=== PATIENT | female | born 1960 | race Caucasian/White ===

== ENCOUNTER 2020-02-08 08:44 | Outpatient (CLI) | payer BC, SELFPAY ==
--- NOTE | 2020-02-08 08:53 | USCV_ITS ---
Keira Infante Age: 59 Gender: F : 1960 Exam Date: 02/08/2020 09:23 Ordering Phys: Angel Mark MD ([email or web address]) Technologist: Harmony Pacheco Exam Location: [facility] Indication: AORTIC STENOSIS BP: / HR: 55 Rhythm: Sinus Technical Quality: MEASUREMENTS (Male / Female) Normal Values 2D ECHO LV Diastolic Diameter PLAX 4.1 cm 4.2 - 5.9 / 3.9 - 5.3 cm LV Systolic Diameter PLAX 2.3 cm LV Chamber Size 3.4 cm IVS Diastolic Thickness 1.4 cm 0.6 - 1.0 / 0.6 - 0.9 cm IVS Systolic Thickness 2.2 cm LVPW Diastolic Thickness 2.1 cm 0.6 - 1.0 / 0.6 - 0.9 cm LVPW Systolic Thickness 2.0 cm RV Chamber Size 2.6 cm LVOT Diameter 2.0 cm LV Ejection Fraction 2D Teich 76.0 % LV Ejection Fraction MOD 2C 36.3 % LV Ejection Fraction 2C AL 37.7 % LA Diameter 4.3 cm LA Width 3.2 cm LA Height 5.4 cm RA Width 2.6 cm RA Height 4.8 cm Aorta at Sinotubular Diameter 2.4 cm M-MODE LV Diastolic Diameter MM 4.8 cm 4.2 - 5.9 / 3.9 - 5.3 cm LV Systolic Diameter MM 2.2 cm LV Ejection Fraction MM Teich 85.7 % IVS Diastolic Thickness MM 0.8 cm 0.6 - 1.0 / 0.6 - 0.9 cm IVS Systolic Thickness MM 1.4 cm LVPW Diastolic Thickness MM 1.6 cm 0.6 - 1.0 / 0.6 - 0.9 cm LVPW Systolic Thickness MM 2.2 cm Aortic Annulus Diameter 2.9 cm LA Ao Ratio MM 1.5 MV E Point Septal Separation 0.4 cm DOPPLER AV Peak Velocity 283.0 cm/s LVOT Peak Velocity 126.0 cm/s AV Area Cont Eq vti 1.6 cm squared AV Area Cont Eq pk 1.4 cm squared MV Area PHT 3.6 cm squared Mitral E to A Ratio 1.1 MV E' Velocity 9.0 cm/s Mitral E to MV E' Ratio 15.0 Mitral E to LV E' Lateral Ratio 14.4 Mitral E to LV E' Septal Ratio 16.0 TR Peak Velocity 196.0 cm/s TR Peak Gradient 15.3 mmHg TV Peak E Velocity 59.0 cm/s Right Atrial Pressure 3.0 mmHg Pulmonary Artery Systolic Pressu 18.4 mmHg PV Peak Velocity 103.0 cm/s RV Acceleration Time 0.1 s RV Ejection Time 0.4 s RV AcT/ET 0.4 FINDINGS Left Ventricle Normal left ventricular cavity size. Normal left ventricular systolic function. No regional wall motion abnormalities. Left ventricular ejection fraction is estimated at 55 %. Grade II/IV diastolic dysfunction, moderately elevated filling pressures. Right Ventricle The right ventricle is normal in size and function. Right Atrium The right atrium is normal in size. Left Atrium The left atrium is normal in size. Mitral Valve Moderately thickened mitral valve. No mitral valve stenosis. Trace mitral valve regurgitation. Aortic Valve Moderate aortic valve calcification. Moderate aortic valve stenosis, mean gradient 12.5 mmHg, GIN 1.6 cm squared. Mild aortic valve regurgitation. Tricuspid Valve Mild tricuspid valve regurgitation. Pulmonic Valve Structurally normal pulmonic valve without significant stenosis. There is no pulmonic regurgitation. Pericardium Normal pericardium without effusion. Aorta Normal ascending aorta dimension. CONCLUSIONS 1-Normal left ventricular cavity size. Normal left ventricular systolic function. No regional wall motion abnormalities. Left ventricular ejection fraction is estimated at 55 %. Grade II/IV diastolic dysfunction, moderately elevated filling pressures. 2-Moderate aortic valve calcification. Moderate aortic valve stenosis, mean gradient 12.5 mmHg, GIN 1.6 cm squared. Mild aortic valve regurgitation. 3-Moderately thickened mitral valve. No mitral valve stenosis. Trace mitral valve regurgitation. 4-Mild tricuspid valve regurgitation. 5-There is no pericardial effusion. Pulmonary artery systolic pressure is within normal limits. 6-No significant change since the prior echocardiogram study of 05/21/2019 . Angel Mark MD (Electronically Signed) Final Date: 08 February 2020 12:11 S
== END 2020-02-08 08:45 | disposition home or self-care (01) ==
LOC: US 08:45
PROVIDERS: PCP Electrodiagnostic Medicine; Visit Provider Internal Medicine Cardiovascular Disease
DX: I35.0 Nonrheumatic aortic (valve) stenosis (principal)
CPT/HCPCS: 93306

== ENCOUNTER → 2020-02-18 10:44 | Outpatient (BNVA) | payer BC, SELFPAY | PROVIDERS: PCP Electrodiagnostic Medicine; Visit Provider Internal Medicine Cardiovascular Disease | DX: E78.5 Hyperlipidemia, unspecified (principal); I10 Essential (primary) hypertension; E78.1 Pure hyperglyceridemia; I35.0 Nonrheumatic aortic (valve) stenosis | CPT/HCPCS: 80048; 80061 ==

== ENCOUNTER 2020-06-19 15:11 | Outpatient (CLI) | payer BC, SELFPAY ==
--- NOTE | 2020-06-19 | XRR_ITS ---
PROCEDURE INFORMATION: Exam: XR Cervical Spine, 2 or 3 Views Exam date and time: 06/19/2020 3:23 PM Age: 59 years old Clinical indication: Radicular pain (radiculopathy); Cervical region; Additional info: Cervical radiculopathy lt shoulder/arm pain/numbness x 1 year TECHNIQUE: Imaging protocol: XR of the cervical spine, 2 or 3 views. COMPARISON: No relevant prior studies available. FINDINGS: Bones/joints: Normal. No acute fracture. There is reversal of cervical lordosis suggesting muscle spasm. No acute fracture or subluxation is seen. There is mild osteoarthritis seen with narrowing of the intervertebral disc space and bone spurs at multiple levels. Soft tissues: Unremarkable. XR/XR cervical spine 3V* [id number] IMPRESSION: 1. Reversal of cervical lordosis possible muscle spasm. 2. Mild osteoarthritis 3. Otherwise No acute findings.
== END 2020-06-19 15:12 | disposition home or self-care (01) ==
LOC: RAD 15:15
PROVIDERS: PCP Electrodiagnostic Medicine; Visit Provider Electrodiagnostic Medicine
DX: M54.12 Radiculopathy, cervical region (principal); M47.812 Spondylosis without myelopathy or radiculopathy, cervical region
CPT/HCPCS: 72040

== ENCOUNTER 2020-06-29 15:00 | Outpatient (CLI) | payer BC, SELFPAY ==
--- NOTE | 2020-06-29 15:19 | MR_ITS ---
WS: [id number] MRI CERVICAL SPINE NONCONTRAST TECHNIQUE: Sagittal T1, T2 and STIR imaging. Axial T2, gradient, and fiesta imaging. CLINICAL INFORMATION: CERVICAL RADICULOPATHY COMPARISON: None. FINDINGS: Straightening of the normal cervical lordosis. Mild disc bulging mid cervical spine. Cord signal is n ormal. No high-grade central canal stenosis. C2-C3: Mild left and no significant right bony foraminal narrowing. Mild facet arthropathy. Spinal ca nal is patent. C3-C4: Mild disc osteophytic ridging. Mild left greater than right foraminal narrowing. Mild to moder ate left facet arthropathy. C4-C5: Disc osteophyte complex with endplate ridging. Mild central canal stenosis with slight contact of the cervical cord. Mild to moderate bilateral bony foraminal narrowing. Mild facet arthropathy. C5-C6: Disc osteophyte complex with endplate ridging. Mild central canal stenosis and slight contact of the cervical cord. Moderate to severe right and moderate left bony foraminal narrowing. Mild facet arthropathy. C6-C7: Disc osteophyte complex with endplate ridging. Slight indentation cervical cord with mild to m oderate central canal stenosis. Moderate to severe left and moderate right bony foraminal narrowing. Mild facet arthropathy. C7-T1: Normal. Visualized brain stem structures: Normal. Prevertebral soft tissues: Normal. MR/MR cervical spin wo con* [id number] IMPRESSION: 1. Straightening of the normal cervical lordosis with mild spondylitic changes . Cord signal is normal. 2. Mild to moderate central canal stenosis C4-C5 C5-C6 and C6-C7 with disc ost eophyte complexes, more prominent at C6-7. 3. Moderate to severe multilevel bony foraminal narrowing worse at bilateral C 5-C6 worse on the right, and bilateral C6-7 worse on the left.
== END 2020-06-29 15:01 | disposition home or self-care (01) ==
LOC: RADSHAW 15:05
PROVIDERS: PCP Electrodiagnostic Medicine; Visit Provider Electrodiagnostic Medicine
DX: M54.12 Radiculopathy, cervical region (principal); M48.02 Spinal stenosis, cervical region
CPT/HCPCS: 72141

== ENCOUNTER 2020-07-16 10:48 | Emergency (ER) | payer BC, SELFPAY ==
[2020-07-16] VITALS (7 sets, daily range): BP systolic 80–125; BP diastolic 40–71; PULSE 65–96; RESP 16–19; TEMP 37.1; O2SAT 91–94; BMI 34.4
[2020-07-16] MEDS: sodium chloride 0.9% 1,000 ML 999 ML IV (11:00)
--- NOTE | 2020-07-16 11:17 | XRR_ITS ---
PROCEDURE INFORMATION: Exam: XR Chest, 1 View Exam date and time: 07/16/2020 11:21 AM Age: 59 years old Clinical indication: Shortness of breath; Additional info: SOB TECHNIQUE: Imaging protocol: XR of the chest Views: 1 view. COMPARISON: CR Chest 2 views* [id number] 07/05/2019 11:37 AM FINDINGS: Lungs: Bibasilar hazy interstitial pulmonary infiltrates are present. This could represent an interstitial pneumonia possibly viral in nature. Pleural space: Unremarkable. No pleural effusion. No pneumothorax. Heart/Mediastinum: Unremarkable. No cardiomegaly. Bones/joints: Unremarkable. XR/XR chest 1V portable [id number] IMPRESSION: There are bibasilar hazy interstitial pulmonary infiltrates which may be due to a viral pneumonia.
--- NOTE | 2020-07-16 11:20 | ECG_ITS ---
[facility] Test Date: 2020-07-16 Pat Name: Keira Infante Department: Room: Gender: Female Devops Developer: : 1960 Requested By: Donnie Ellison I Order Number: [id number] Reading MD: LUIS M VASQUES Measurements Intervals [place] Rate: 67 P: 23 [place]: 195 QRS: 49 QRSD: 106 T: 83 QT: 394 QTc: 418 Interpretive Statements SINUS RHYTHM WITH MARKED SINUS ARRHYTHMIA LOW QRS VOLTAGE IN PRECORDIAL LEADS [QRS DEFLECTION < 1.0 mV IN CHEST LEADS] No previous ECG available for comparison Electronically Signed On 07-16-2020 15:47:17 [employer] ELECTRICAL ENGINEER by LUIS M VASQUES [id number]
--- NOTE | 2020-07-16 11:29 | ED_ITS ---
HPI - SOB/Dyspnea General: Chief Complaint: Upper Respiratory Infection Stated Complaint: SOB; SYNCOPE Time Seen by Provider: 07/16/20 10:49 Source: patient Mode of arrival: EMS Limitations: no limitations History of Present Illness: HPI Narrative: About 10 days ago the patient was feeling unwell and went to see her primary care provider. She was treated for bronchitis with antibiotics and says that she initially felt better. Yesterday she started feeling ill again and had a fever of 102.1. She has a persistent cough which is dry. She has some shortness of breath and dizziness. Today she had a syncopal episode and so was brought to the emergency department for evaluation. MD elicited complaint: shortness of breath and cough Onset (ago): day(s) (1) Context: recent illness Timing: constant and progressively worsening Severity: moderate Exacerbating factors: nothing Relieving factors: nothing Associated symptoms: Reports chest congestion, cough, dizziness, fever(s) and lightheadedness; Deny abdominal pain, chest pain, diaphoresis, extremity pain, hemoptysis, myalgias, nausea, orthopnea, palpitations, paresthesias, polydipsia, polyuria, rash, sense of impending doom, syncope or vomiting Treatment prior to arrival: none Review of Systems General: Reports: 10 or more systems reviewed and unremarkable except in HPI and below Const: Reports: fever(s); Denies: diaphoresis Eyes: Denies: change in vision or blurry vision ENMT: Denies: throat pain, enlarged tonsils, odynophagia, hoarseness, mouth pain or swelling of lips/tongue Card: Reports: lightheadedness; Denies: chest pain, palpitations, syncope or orthopnea Resp: Reports: chest congestion; Denies: hemoptysis GI: Denies: abdominal pain, nausea or vomiting : Denies: flank pain, difficulty voiding, dysuria, urinary frequency, urinary urgency or urinary hesitancy Musc: Denies: extremity pain Skin/Breast: Denies: rash, pruritus or erythema Neuro: Reports: dizziness Endo: Denies: polyuria or polydipsia [facility] ED PFSH: Medical History Aortic stenosis Heart murmur History of adenomatous polyp of colon Hyperlipidemia, unspecified Malignant hypertension Peripheral neuropathy Sleep apnea, obstructive Varicose veins of both lower extremities Surgical History No pertinent past surgical history Family History Mother CAD (coronary artery disease) Diabetes Heart disease Grandmother Hypertension Maternal grandmother Diabetes Paternal grandmother Family/Other Cancer Paternal aunt-breast cancer Grandfather Cancer Paternal grandfather-colon cancer Father Heart disease Social History Smoking and tobacco status: never smoked Alcohol intake: never Physical Exam Const: COMMON NORMALS: no acute distress, average body habitus, patient oriented x3, no limitations, healthy appearing, alert and well nourished HENMT: COMMON NORMALS: normocephalic, atraumatic and moist oral mucous membranes HEAD & SCALP: normocephalic and atraumatic Neck/C-Spine: COMMON NORMALS: no meningeal signs and no JVD Resp: COMMON NORMALS: normal respiratory effort, No retractions, No use of accessory muscles, clear to auscultation bilaterally and percussion normal AUSCULTATION: clear to auscultation bilaterally PERCUSSION: percussion normal Cardio: COMMON NORMALS: no JVD, regular rate, regular rhythm, S1 normal heart sound present, S2 normal heart sound present, No gallops present (Cardio), No clicks present (Cardio), No murmurs present (Cardio), No rub (Cardio) and Rolanda pheral pulses 2+ throughout RATE: regular rate RHYTHM: regular rhythm HEART SOUNDS: S1 normal heart sound present and S2 normal heart sound present PERIPHERAL PULSES: Peripheral pulses 2+ throughout GI: COMMON NORMALS: Normal to inspection, nondistended, normoactive bowel sounds present, Soft to palpation, non-tender, No hepatosplenomegaly present, no masses and no bruits PALPATION: Yes Soft to palpation and Yes No hepatosplenomegaly present Extremity: COMMON NORMALS: normal to inspection, full ROM, capillary refill normal, no calf tenderness and no pedal edema Neuro: COMMON NORMALS: patient oriented x3 SENSORIUM/ORIENTATION: Yes alert MENINGEAL SIGNS: Yes no meningeal signs Skin: COMMON NORMALS: no rashes or lesions noted, no wounds, turgor normal, no jaundice, no petechiae and no mottling GENERAL SKIN EXAM: no rashes or lesions noted and turgor normal Course Reevaluation(s): Reevaluation #1: Discussed her lab and imaging findings with her. She has findings consistent with pneumonia. She does have leukocytosis and neutrophilia. Because of these she is started on antibiotics. Chest x-ray findings that may be consistent with a viral pneumonia so she was tested for COVID-19. Time: 13:39 Vital Signs: Vital signs: Vital Signs Temperature 98.7 F 07/16/20 10:50 Pulse Rate 65 07/16/20 14:18 Respiratory Rate 16 07/16/20 13:30 Blood Pressure 122/56 07/16/20 14:18 Pulse Oximetry 94 07/16/20 14:18 MDM - SOB/Dyspnea MDM Narrative: Medical decision making narrative: 59-year-old female patient with pneumonia, bacterial versus viral. She is given a dose of intravenous antibiotic in the emergency department and discharged home on oral antibiotics. She is also tested for COVID-19. Medical Records: Attestation: I reviewed the patient's medical records. Lab Data: Attestation: I reviewed the patient's lab results. Labs: Lab Results 07/16/20 07/16/20 07/16/20 Range/Units 11:02 11:02 11:02 WBC 12.9 H (4.0-10.0) 10^3/ uL RBC 4.04 L (4.1-5.3) 10^6/u L Hgb 11.2 L (11.5-15.3) g/dL Hct 34.6 L (37.0-47.0) % MCV 85.6 (81-99) fL MCH 27.7 L (28.0-34.0) pg MCHC 32.4 (30.0-36.0) g/dL RDW 14.4 (12.1-15.1) % Plt Count 260 (130-400) 10^3/c mm MPV 9.4 (7.4-10.4) fL Neut % (Auto) 79.3 % Lymph % (Auto) 15.8 % Marshall % (Auto) 3.3 % Eos % (Auto) 0.1 % Baso % (Auto) 0.2 % Neut # (Auto) 10.23 H (1.8-7.7) 10^3/u L Lymph # (Auto) 2.0 (0.8-4.8) 10^3/u L Marshall # (Auto) 0.4 (0.2-0.9) 10^3/u L Eos # (Auto) 0.0 (0.0-0.8) 10^3/u L Baso # (Auto) 0.0 (0.0-0.1) 10^3/u L Nucleated RBC % (a uto) 0 % Nucleated RBCs # 0.0 /100WBC D-Dimer 0.34 (0-0.59) ug/mIFE U Sodium 132 L (136-145) mmol/L Potassium 3.7 (3.5-5.1) mmol/L Chloride 97 L (98-107) mmol/L Carbon Dioxide 25 (22-29) mmol/L Anion Gap 13.7 (5-19) BUN 16 (8-23) mg/dL Creatinine 1.1 H (0.5-0.9) mg/dL GFR Calculation 50.7 L (90-130) mL/min Glucose 119 H (65-115) mg/dL Calculated Osmolal ity 276 L (285-295) mOsm/k g Lactic Acid (0.5-2.2) mmol/L Calcium 8.0 L (8.5-10.5) mg/dL Total Bilirubin 0.6 (0.15-1.2) mg/dL AST 22 (0-32) U/L ALT 17 (0-33) U/L Alkaline Phosphata se 53 (35-105) IU/L Troponin T Baselin e (0-10) ng/L Troponin T 120 Min brisa (0-10) ng/L Delta Troponin T (0-10) ABS# C-Reactive Protein 51.3 H (0.0-4.9) mg/L NT-Pro-B Natriuret Pep 55 (0-125) pg/mL Total Protein 5.2 L (6.6-8.7) g/dL Albumin 3.3 L (3.5-5.2) g/dL Globulin 1.9 (1.3-4.6) g/dL Procalcitonin 0.09 (0-0.5) ng/mL Influenza Type A A g (Negative) Influenza Type B A g (Negative) SARS-CoV-2 Ag (Rap id) (Negative) 07/16/20 07/16/20 07/16/20 Range/Units 11:02 11:02 11:40 WBC (4.0-10.0) 10^3/ uL RBC (4.1-5.3) 10^6/u L Hgb (11.5-15.3) g/dL Hct (37.0-47.0) % MCV (81-99) fL MCH (28.0-34.0) pg MCHC (30.0-36.0) g/dL RDW (12.1-15.1) % Plt Count (130-400) 10^3/c mm MPV (7.4-10.4) fL Neut % (Auto) % Lymph % (Auto) % Marshall % (Auto) % Eos % (Auto) % Baso % (Auto) % Neut # (Auto) (1.8-7.7) 10^3/u L Lymph # (Auto) (0.8-4.8) 10^3/u L Marshall # (Auto) (0.2-0.9) 10^3/u L Eos # (Auto) (0.0-0.8) 10^3/u L Baso # (Auto) (0.0-0.1) 10^3/u L Nucleated RBC % (a uto) % Nucleated RBCs # /100WBC D-Dimer (0-0.59) ug/mIFE U Sodium (136-145) mmol/L Potassium (3.5-5.1) mmol/L Chloride (98-107) mmol/L Carbon Dioxide (22-29) mmol/L Anion Gap (5-19) BUN (8-23) mg/dL Creatinine (0.5-0.9) mg/dL GFR Calculation (90-130) mL/min Glucose (65-115) mg/dL Calculated Osmolal ity (285-295) mOsm/k g Lactic Acid 1.2 (0.5-2.2) mmol/L Calcium (8.5-10.5) mg/dL Total Bilirubin (0.15-1.2) mg/dL AST (0-32) U/L ALT (0-33) U/L Alkaline Phosphata se (35-105) IU/L Troponin T Baselin e 17 H (0-10) ng/L Troponin T 120 Min brisa (0-10) ng/L Delta Troponin T (0-10) ABS# C-Reactive Protein (0.0-4.9) mg/L NT-Pro-B Natriuret Pep (0-125) pg/mL Total Protein (6.6-8.7) g/dL Albumin (3.5-5.2) g/dL Globulin (1.3-4.6) g/dL Procalcitonin (0-0.5) ng/mL Influenza Type A A g Negative (Negative) Influenza Type B A g Negative (Negative) SARS-CoV-2 Ag (Rap id) (Negative) 07/16/20 07/16/20 Range/Units 11:40 13:02 WBC (4.0-10.0) 10^3/ uL RBC (4.1-5.3) 10^6/u L Hgb (11.5-15.3) g/dL Hct (37.0-47.0) % MCV (81-99) fL MCH (28.0-34.0) pg MCHC (30.0-36.0) g/dL RDW (12.1-15.1) % Plt Count (130-400) 10^3/c mm MPV (7.4-10.4) fL Neut % (Auto) % Lymph % (Auto) % Marshall % (Auto) % Eos % (Auto) % Baso % (Auto) % Neut # (Auto) (1.8-7.7) 10^3/u L Lymph # (Auto) (0.8-4.8) 10^3/u L Marshall # (Auto) (0.2-0.9) 10^3/u L Eos # (Auto) (0.0-0.8) 10^3/u L Baso # (Auto) (0.0-0.1) 10^3/u L Nucleated RBC % (a uto) % Nucleated RBCs # /100WBC D-Dimer (0-0.59) ug/mIFE U Sodium (136-145) mmol/L Potassium (3.5-5.1) mmol/L Chloride (98-107) mmol/L Carbon Dioxide (22-29) mmol/L Anion Gap (5-19) BUN (8-23) mg/dL Creatinine (0.5-0.9) mg/dL GFR Calculation (90-130) mL/min Glucose (65-115) mg/dL Calculated Osmolal ity (285-295) mOsm/k g Lactic Acid (0.5-2.2) mmol/L Calcium (8.5-10.5) mg/dL Total Bilirubin (0.15-1.2) mg/dL AST (0-32) U/L ALT (0-33) U/L Alkaline Phosphata se (35-105) IU/L Troponin T Baselin e (0-10) ng/L Troponin T 120 Min brisa 15.48 H (0-10) ng/L Delta Troponin T -1.52 L (0-10) ABS# C-Reactive Protein (0.0-4.9) mg/L NT-Pro-B Natriuret Pep (0-125) pg/mL Total Protein (6.6-8.7) g/dL Albumin (3.5-5.2) g/dL Globulin (1.3-4.6) g/dL Procalcitonin (0-0.5) ng/mL Influenza Type A A g (Negative) Influenza Type B A g (Negative) SARS-CoV-2 Ag (Rap id) Negative (Negative) Imaging Data^: CXR: Attestation: I personally reviewed and interpreted this imaging study as follows: Radiologist's impression: [address] [address] XRay Report Signed Patient: Keira Infante #: [id number] : 1960Acct#:[id number] Age/Sex: 59 / FADM Date: 07/16/20 Loc: ERRoom/Bed: Attending Dr: Ordering Provider/Ordering MD: Donnie Ellison MD, [facility] [place] Date of Service: 07/16/20 Procedure(s): XR chest 1V portable [id number] Accession Number(s): [id number] Report Number: [id number] PROCEDURE INFORMATION: Exam: XR Chest, 1 View Exam date and time: 07/16/2020 11:21 AM Age: 59 years old Clinical indication: Shortness of breath; Additional info: SOB TECHNIQUE: Imaging protocol: XR of the chest Views: 1 view. COMPARISON: CR Chest 2 views* [id number] 07/05/2019 11:37 AM FINDINGS: Lungs: Bibasilar hazy interstitial pulmonary infiltrates are present. This could represent an interstitial pneumonia possibly viral in nature. Pleural space: Unremarkable. No pleural effusion. No pneumothorax. Heart/Mediastinum: Unremarkable. No cardiomegaly. Bones/joints: Unremarkable. XR/XR chest 1V portable [id number] IMPRESSION: There are bibasilar hazy interstitial pulmonary infiltrates which may be due to a viral pneumonia. Dictated By:Aj Pike Signed By:Aj PikeSiregina Date/Time:07/16/20 1320 DD/ 1319 EKG Data^: EKG 1: Attestation: I personally reviewed and interpreted this EKG as follows: EKG Interpretation Date: 07/16/20 EKG interpretation time: 11:06 Prior EKG tracings: not available for review Interpretation: Sinus rhythm with sinus arrhythmia. Heart rate [address] changes. Normal axis. EKG 2: Attestation: I personally reviewed and interpreted this EKG as follows: EKG Interpretation Date: 07/16/20 EKG interpretation time: 12:59 Prior EKG tracings: available for review Interpretation: Sinus rhythm with sinus arrhythmia. Heart rate [address] changes. Normal axis. Unchanged from earlier Discharge Plan Discharge Patient Disposition: Home Clinical Impression: Pneumonia Qualifiers: Pneumonia type: due to unspecified organism Laterality: bilateral Lung location: lower lobe of lung Qualified Code(s): J18.9 - Pneumonia, unspecified organism Condition: Stable Prescriptions: New Augmentin 875-125 mg tablet 1 tab PO BID Qty: 14 RF: 0 Continued cholecalciferol (vitamin D3) 75 mcg (3,000 unit) tablet 75 mcg PO DAILY@0700 RF: 0 omega 1-xhb-kyd-fish oil [Fish Oil] 1,000 mg (120 mg-180 mg) capsule 1 cap PO DAILY@0700 RF: 0 coenzyme Q10 [Co Q-10] 400 mg capsule 400 mg PO DAILY@0700 RF: 0 garlic 300 mg capsule 300 mg PO DAILY@0700 RF: 0 multivitamin with minerals [Hair,Skin and Nails] Tablet 1 tab PO DAILY@0700 RF: 0 carvedilol 12.5 mg tablet 12.5 mg PO DIRECTED Qty: 225 RF: 3 valsartan-hydrochlorothiazide 160-12.5 mg tablet 1 tab PO DAILY@0700 RF: 0 potassium chloride 10 mEq tablet extended release 10 meq PO DAILY@0700 RF: 0 hydralazine 100 mg tablet 100 mg PO TID@,, RF: 0 magnesium 200 mg tablet 1,200 mg PO BID@699,1999 RF: 0 Crestor 20 mg tablet 20 mg PO DAILY@0700 RF: 0 fenofibrate nanocrystallized 145 mg tablet 145 mg PO DAILY@0700 RF: 0 Discharge Orders: Discharge ED (Routine); Ordered 07/16/20 Ordered By: Donnie Ellison Referrals: Titus Wright DO [Primary Care Provider] - 1-3 days Discharge Diet: Usual diet Discharge Activity: Increase activity as tolerated Patient Instructions: Pneumonia (ED) Activity Restrictions/Additional Instructions: Return for any new or worsening symptoms. Follow up with your primary care provider within 3 days. You will be contacted with the results of your covid pcr test in a few days. Take the antibiotic as prescribed. Drink plenty of fluids to keep well-hydrated. Check your blood pressure before taking any of your blood pressure medicines and if your blood pressure is low please do not take the medicine. Coding Level of Care Code ED Group Insurance Specialist for [employer] Fwd Exam Comprehensive
[2020-07-16 11:50] LABS: Basophils % 0.2 %; Eosinophils % 0.1 %; Hematocrit 34.6 % (37.0-47.0); Hemoglobin 11.2 g/dL (11.5-15.3); Lymphocytes % 15.8 %; Mean Corpuscular HGB Conc 32.4 g/dL (30.0-36.0); Mean Corpuscular Hemoglobin 27.7 pg (28.0-34.0); Mean Corpuscular Volume 85.6 fL (81-99); Mean Platelet Volume 9.4 fL (7.4-10.4); Monocytes # 0.4 10^3/uL (0.2-0.9); Monocytes % 3.3 %; Neutrophils # 10.23 10^3/uL (1.8-7.7); Neutrophils % 79.3 %; Nucleated Red Blood Cells % 0 %; Platelet Count 260 10^3/cmm (130-400); Red Blood Count 4.04 10^6/uL (4.1-5.3); Red Cell Distribution Width 14.4 % (12.1-15.1); White Blood Count 12.9 10^3/uL (4.0-10.0)
[2020-07-16 12:03] LABS: Lactic Sepsis W/Reflex 1.2 mmol/L (0.5-2.2)
[2020-07-16 12:04] LABS: D Dimer 0.34 ug/mIFEU (0-0.59)
[2020-07-16 12:14] LABS: NT Pro B Type Natriuretic Pept 55 pg/mL (0-125); Procalcitonin 0.09 ng/mL (0-0.5)
[2020-07-16 12:27] LABS: Alanine Aminotransferase 17 U/L (0-33); Albumin Level 3.3 g/dL (3.5-5.2); Alkaline Phosphatase 53 IU/L (35-105); Anion Gap 13.7 (5-19); Aspartate Amino Transferase 22 U/L (0-32); Blood Urea Nitrogen 16 mg/dL (8-23); C Reactive Protein 51.3 mg/L (0.0-4.9); Carbon Dioxide 25 mmol/L (22-29); Chloride 97 mmol/L (98-107); Globulin 1.9 g/dL (1.3-4.6); Glomerular Filtration Rate 50.7 mL/min (90-130); Glucose 119 mg/dL (65-115); Osmolality Calculated 276 mOsm/kg (285-295); Potassium 3.7 mmol/L (3.5-5.1); Sodium 132 mmol/L (136-145); Total Bilirubin 0.6 mg/dL (0.15-1.2); Total Protein 5.2 g/dL (6.6-8.7)
[2020-07-16 12:29] LABS: Troponin(5th) Baseline 17 ng/L (0-10)
[2020-07-16 12:47] LABS: Influenza A by IFA Negative (Negative); Influenza B by IFA Negative (Negative); SARS Covid-2 Antigen Negative (Negative)
--- NOTE | 2020-07-16 13:20 | ECG_ITS ---
[facility] Test Date: 2020-07-16 Pat Name: Keira Infante Department: Room: Gender: Female Development Trainer: : 1960 Requested By: Donnie Ellison I Order Number: [id number] Reading MD: Measurements Intervals [place] Rate: 74 P: 67 RI: 140 QRS: 8 QRSD: 106 T: 69 QT: 379 QTc: 423 Interpretive Statements SINUS RHYTHM NONSPECIFIC T-WAVE ABNORMALITY Compared to ECG 07/16/2020 11:06:23 T-wave abnormality now present Sinus arrhythmia no longer present [id number]
[2020-07-16 13:49] LABS: Troponin 5 2HR 15.48 ng/L (0-10)
[2020-07-16 13:51] LABS: Troponin 5 2HR Delta -1.52 ABS# (0-10)
[2020-07-16] MEDS: cefTRIAXone 1,000 MG in sodium chloride 0.9% (plus) 50 ML 100 MG IV (13:55)
--- NOTE | 2020-07-16 17:20 | ECG_ITS ---
[facility] Test Date: 2020-07-16 Pat Name: Keira Infante Department: Room: Gender: Female Inside Contractor Sales: : 1960 Requested By: Donnie Ellison I Order Number: [id number] Reading MD: LUIS M VASQUES Measurements Intervals [place] Rate: 66 P: 22 [place]: 202 QRS: 56 QRSD: 95 T: 87 QT: 372 QTc: 390 Interpretive Statements SINUS RHYTHM WITH SINUS ARRHYTHMIA LOW QRS VOLTAGE IN PRECORDIAL LEADS [QRS DEFLECTION < 1.0 mV IN CHEST LEADS] SEPTAL MYOCARDIAL INFARCTION , OF INDETERMINATE AGE [40+ ms Q WAVE IN V1/V2] Compared to ECG 07/16/2020 12:32:36 Low QRS voltage now present Myocardial infarct finding now present T-wave abnormality no longer present Electronically Signed On 07-16-2020 15:47:44 TRACK LABORER by LUIS M VASQUES [id number]
[2020-07-19 07:22] LABS: Coronavirus Lab Test PTC Positive
--- NOTE | 2020-07-19 08:50 | PC.NURSE ---
Pt called and notified of positive COVID result
== END 2020-07-16 14:19 | disposition home or self-care (01) ==
PROVIDERS: Emergency Provider Family Medicine; PCP Electrodiagnostic Medicine
DX: U07.1 COVID-19 (principal); J18.9 Pneumonia, unspecified organism; E78.5 Hyperlipidemia, unspecified; I10 Essential (primary) hypertension
CPT/HCPCS: 12345; 36415; 71045; 80053; 83605; 83880; 84145; 84484; 85025; 85378; 86140; 87426; 87635; 87804; 93005; 96361; 96365; 96375; 99283; J0696; J7030

== ENCOUNTER 2020-08-01 13:37 | Outpatient (CLI) | payer BC, SELFPAY ==
--- NOTE | 2020-08-01 13:51 | XRR_ITS ---
PROCEDURE INFORMATION: Exam: XR Chest, 2 Views Exam date and time: 08/01/2020 1:53 PM Age: 59 years old Clinical indication: Condition or disease; Lung condition and disease; Pneumonia; Additional info: Pneumonia due to sars-associated coronavirus TECHNIQUE: Imaging protocol: XR of the chest Views: 2 views. COMPARISON: CR (CHEST, ) 07/16/2020 12:31 PM FINDINGS: Lungs: Unremarkable. No consolidation. Pleural space: Unremarkable. No pleural effusion. No pneumothorax. Heart/Mediastinum: Unremarkable. No cardiomegaly. Bones/joints: Unremarkable. XR/XR chest 2V* [id number] IMPRESSION: No acute findings.
== END 2020-08-01 13:38 | disposition home or self-care (01) ==
PROVIDERS: PCP Electrodiagnostic Medicine; Visit Provider Electrodiagnostic Medicine
DX: J12.81 Pneumonia due to SARS-associated coronavirus (principal)
CPT/HCPCS: 71046

== ENCOUNTER 2020-12-29 10:25 | Outpatient (CLI) | payer OTHER, SELFPAY ==
--- NOTE | 2020-12-29 14:45 | XR_ITS ---
WS: [id number] Bone mineral density performed on a [facility], 12/29/2020. Clinical data: Z78.0 - Asymptomatic menopausal state Findings: The first 4 lumbar vertebral bodies demonstrated the bone mineral density of 1.215 g/cm2 for a young adult T score of 0.3. Measurement of the left hip reveals a bone mineral density of 1.107 g/cm2 with a young adult T score of 0.8. Measurement of the right hip reveals the bone mineral density of 1.103 g/cm2 for young adult T score of 0.8. XR/XR DEXA axial skeleton* [id number] Impression: Normal bone mineral density of the lumbar spine and both hips.
== END 2020-12-29 10:26 | disposition home or self-care (01) ==
PROVIDERS: PCP Electrodiagnostic Medicine; Visit Provider Nurse Practitioner Women's Health
DX: Z78.0 Asymptomatic menopausal state (principal)
CPT/HCPCS: 77080

== ENCOUNTER 2021-03-26 12:45 | Outpatient (CLI) | payer OTHER, SELFPAY ==
--- NOTE | 2021-03-26 12:57 | XRR_ITS ---
PROCEDURE INFORMATION: Exam: XR Right Hip Exam date and time: 03/26/2021 12:57 PM Age: 60 years old Clinical indication: Pain and condition or disease; Other: Rhematoid arthritis; Hip pain; Right hip; Additional info: Chronic right hip pain/chronic rhematoid arthritis TECHNIQUE: Imaging protocol: XR Right hip. Views: 1 view hip with pelvis when performed. COMPARISON: CR Hip 2-3v RIGHT wwo Pelv* [id number] 09/18/2017 2:08 PM FINDINGS: Bones/joints: No significant joint space narrowing of the hip. No irregular osseous erosions. The visualized osseous structures of the right hip and pelvis are intact. Soft tissues: Unremarkable. XR/XR hip RT 2-3V wo/w pel* [id number] IMPRESSION: No significant degenerative changes or radiographic findings to suggest inflammatory arthropathy of the right hip.
== END 2021-03-26 12:46 | disposition home or self-care (01) ==
LOC: RAD 12:52
PROVIDERS: PCP Electrodiagnostic Medicine; Visit Provider Electrodiagnostic Medicine
DX: M25.551 Pain in right hip (principal); G89.29 Other chronic pain; M06.9 Rheumatoid arthritis, unspecified
CPT/HCPCS: 73502

== ENCOUNTER 2021-04-09 13:08 | Outpatient (CLI) | payer OTHER, SELFPAY ==
--- NOTE | 2021-04-09 13:33 | CT_ITS ---
WS: [id number] NONCONTRAST CT RIGHT HIP TECHNIQUE: Noncontrast CT right hip with coronal and sagittal reformatted images. CLINICAL INFORMATION: CHRONIC RT HIP PAIN,MYALGIA,MYOSITIS, ARTHRALGIA COMPARISON: None. DLP: 725.[address] scans at [facility] use at least one of these dose optimization techniques: automat ed exposure control; mA and/or kV adjustment per patient size (includes targeted exams where dose is matched to clinical indication); or iterative reconstruction. FINDINGS: Mild degenerative arthritis right hip. Moderate joint space narrowing. Normal femoral neck. No acute fractures. Visualized proximal femoral shaft is normal. No evidence of avascular necrosis or signific ant subchondral cystic change. No significant joint effusion. Normal acetabulum. Mild degenerative ar thritis partially visualized right sacroiliac joint. Normal pubic rami. CT/CT hip RT wo con* [id number] IMPRESSION: 1. Moderate degenerative narrowing right hip. No acute fractures. 2. No evidence of avascular necrosis. 3. Normal right femoral neck and proximal femoral shaft. 4. No other significant findings.
== END 2021-04-09 13:09 | disposition home or self-care (01) ==
PROVIDERS: PCP Electrodiagnostic Medicine; Visit Provider Electrodiagnostic Medicine
DX: M25.551 Pain in right hip (principal); G89.29 Other chronic pain; L40.8 Other psoriasis; M60.9 Myositis, unspecified; M25.50 Pain in unspecified joint
CPT/HCPCS: 73700

== ENCOUNTER 2021-09-04 15:14 | Outpatient (CLI) | payer OTHER, MEDICAID, SELFPAY ==
--- NOTE | 2021-09-04 15:00 | USCV_ITS ---
Keira Infante Age: 60 Gender: F : 1960 Exam Date: 09/04/2021 15:34 Ordering Phys: Angel Mark MD ([email or web address]) Technologist: SUSANA [place]am Location: [facility] [place] Indication: AORTIC STENOSIS BP: 170 / 80 HR: 64 Rhythm: Sinus Technical Quality: Adequate MEASUREMENTS (Male / Female) Normal Values 2D ECHO LV Diastolic Diameter PLAX 4.6 cm 4.2 - 5.9 / 3.9 - 5.3 cm LV Systolic Diameter PLAX 2.9 cm IVS Diastolic Thickness 1.1 cm 0.6 - 1.0 / 0.6 - 0.9 cm IVS Systolic Thickness 2.0 cm LVPW Diastolic Thickness 1.4 cm 0.6 - 1.0 / 0.6 - 0.9 cm LVPW Systolic Thickness 1.9 cm LVOT Diameter 2.0 cm LV Ejection Fraction 2D Teich 68.1 % LV Ejection Fraction MOD 2C 68.8 % LV Ejection Fraction 2C AL 69.3 % LA Diameter 2.6 cm LA Width 2.7 cm LA Height 5.1 cm RA Width 3.4 cm RA Height 4.7 cm Aorta at Sinotubular Diameter 2.0 cm M-MODE Aortic Annulus Diameter 2.8 cm LA Ao Ratio MM 1.1 MV E Point Septal Separation 0.4 cm DOPPLER AV Peak Velocity 309.8 cm/s LVOT Peak Velocity 99.7 cm/s AV Area Cont Eq vti 0.9 cm squared AV Area Cont Eq pk 1.0 cm squared MV Peak Velocity 120.0 cm/s MV Area PHT 2.6 cm squared Mitral E to A Ratio 1.0 MV E' Velocity 54.0 cm/s Mitral E to MV E' Ratio 11.5 Mitral E to LV E' Lateral Ratio 10.6 Mitral E to LV E' Septal Ratio 12.5 Right Atrial Pressure 8.0 mmHg PV Peak Velocity 130.0 cm/s RV Acceleration Time 0.1 s RV Ejection Time 0.4 s RV AcT/ET 0.2 FINDINGS Left Ventricle Normal left ventricular cavity size. Normal left ventricular systolic function. Left ventricular ejection fraction is estimated at 60 %. Grade I/IV diastolic dysfunction (abnormal relaxation filling pattern), normal to mildly elevated filling pressures. Right Ventricle The right ventricle is normal in size and function. Right Atrium The right atrium is normal in size. Left Atrium The left atrium is normal in size. Mitral Valve Structurally normal mitral valve without significant stenosis or prolapse. There is no mitral regurgitation. Aortic Valve Aortic valve not well visualized. Tricuspid Valve Mild tricuspid valve regurgitation. Pulmonic Valve Structurally normal pulmonic valve without significant stenosis. There is no pulmonic regurgitation. Pericardium Normal pericardium without effusion. Aorta Normal ascending aorta dimension. CONCLUSIONS 1-Normal left ventricular cavity size. Normal left ventricular systolic function. Left ventricular ejection fraction is estimated at 60 %. Grade I/IV diastolic dysfunction (abnormal relaxation filling pattern), normal to mildly elevated filling pressures. 2-Aortic valve not well visualized. 3-There is no pericardial effusion. 4-Right atrial pressure is around 5 mm of mercury. 5-Compared to prior echocardiogram dated January 19, 2020 this is a suboptimal image quality cannot compare with the prior echo. Further assessment of aortic valve need to be performed by using contrast or transesophageal echocardiogram if clinically indicated Angel Mark MD (Electronically Signed) Final Date: 05 September 2021 19:21 S
== END 2021-09-04 15:15 | disposition home or self-care (01) ==
LOC: RAD 15:16
PROVIDERS: PCP Electrodiagnostic Medicine; Visit Provider Internal Medicine Cardiovascular Disease
DX: I35.0 Nonrheumatic aortic (valve) stenosis (principal); R06.02 Shortness of breath
CPT/HCPCS: 93306

== ENCOUNTER 2021-10-15 11:14 | Outpatient (CLI) | payer MEDICAID, SELFPAY ==
[2021-10-15 12:43] LABS: Anion Gap 17.7 (5-19); Blood Urea Nitrogen 13 mg/dL (8-23); Calcium 9.2 mg/dL (8.5-10.5); Carbon Dioxide 25 mmol/L (22-29); Chloride 100 mmol/L (98-107); Glomerular Filtration Rate 125.4 mL/min (90-130); Glucose 109 mg/dL (65-115); Magnesium 1.9 mg/dL (1.7-2.3); NT Pro B Type Natriuretic Pept 33 pg/mL (0-125); Osmolality Calculated 287 mOsm/kg (285-295); Potassium 4.7 mmol/L (3.5-5.1); Sodium 138 mmol/L (136-145)
== END 2021-10-15 11:15 | disposition home or self-care (01) ==
PROVIDERS: PCP Electrodiagnostic Medicine; Visit Provider Internal Medicine Cardiovascular Disease
DX: E78.1 Pure hyperglyceridemia (principal); I10 Essential (primary) hypertension; I35.0 Nonrheumatic aortic (valve) stenosis
CPT/HCPCS: 80048; 83735; 83880

== ENCOUNTER → 2021-10-29 10:06 | Outpatient (BNVA) | payer MEDICAID, SELFPAY | PROVIDERS: PCP Electrodiagnostic Medicine; Visit Provider Internal Medicine Cardiovascular Disease | DX: Z20.822 Contact with and (suspected) exposure to COVID-19 (principal) | CPT/HCPCS: 87635 ==

== ENCOUNTER 2021-11-02 09:38 | Day surgery (SDC) | payer MEDICAID, SELFPAY ==
[2021-11-01 08:22] VITALS: BMI 36.0
[2021-11-02 10:20] VITALS: BP 149/72; PULSE 72; RESP 18; TEMP 36.4; O2SAT 94
[2021-11-02] MEDS: sodium chloride 0.9% 1,000 ML 30 ML IV (10:33)
--- NOTE | 2021-11-02 11:06 | W.PM.OPSFHP ---
Same Day Surgery H&P Indication for Procedure/HPI DATE OF PROCEDURE: November 02, 2021 CHIEF COMPLAINT/INDICATIONFOR SURGICAL PROCEDURE: Assessment of severity PREOP DIAGNOSIS: PLANNED PROCEDURE: Operation Date: 11/02/21 11:00 Proposed Procedures p JACKIE/(Not Applicable) - Katarzyna Brody MD 61 yo woman with PMHx of HTN, HLD, JANETTE on CPAP, aortic stenosis. Recent TTE where aortic valve was not well visualized. JACKIE to assess severity today. Medications/Allergies* Home Medications Medication Instructions Recorded Confirmed Type coenzyme Q10 400 mg capsule (Co 400 mg PO DAILY@69902/18/20 11/02/21 History Q-10) garlic 300 mg capsule 300 mg PO DAILY@69902/18/20 11/02/21 History omega 4-sge-sob-fish oil 1,000 mg 1 cap PO DAILY@69902/18/20 11/02/21 History (120 mg-180 mg) capsule (Fish Oil) magnesium 200 mg tablet 1,200 mg PO BID@07,199907/16/20 11/02/21 History clonidine HCl 0.1 mg tablet 0.1 mg PO BID PRN 08/22/20 11/02/21 History zinc 50 mg tablet 50 mg PO DAILY 08/22/20 11/02/21 History ascorbate calcium (vitamin C) 500 1 g PO DAILY tab 06/18/21 11/02/21 History mg tablet cholecalciferol (vitamin D3) 75 10,000 unit PO DAILY@0700 tab 06/18/21 11/02/21 History mcg (3,000 unit) tablet diclofenac sodium 75 mg 75 mg PO BID 06/18/21 11/02/21 History tablet,delayed release turmeric (bulk) 95 % powder 1 ea MISCELLANEOUS DAILY 06/18/21 11/02/21 History (Curcumin) hydralazine 50 mg tablet 100 mg PO TID tab 09/11/21 11/02/21 History fenofibrate nanocrystallized 145 145 mg PO DAILY 11/01/21 11/02/21 History mg tablet Allergies/Adverse Reactions Allergy/AdvReac Type Severity Reaction Status Date / Time amlodipine [From [facility]] Allergy Unknown Unknown Verified 11/02/21 10:21 Sulfa (Sulfonamide Allergy Unknown Unknown Verified 11/02/21 10:21 Antibiotics) Current Medications: Generic Name Dose Route Start Last Admin Trade Name Freq PRN Reason Stop Dose Admin Sodium Chloride 1,000 mls @ 30 mls/hr 11/02/21 10:30 11/02/21 10:33 Sodium Chloride 0.9% IV 11/03/21 10:29 30 mls/hr .Q24H BISHOP Administration Pertinent History/Comorbid Conditions* Medical History (Updated 09/11/21 @ 22:41 by Katarzyna Brody MD) Aortic stenosis History of adenomatous polyp of colon History of COVID-19 (~07/2020) Hyperlipidemia, unspecified Malignant hypertension No pertinent past medical history neghx: dm,thyroid,dvt/pe PCP: Dr. Wright Peripheral neuropathy Sleep apnea, obstructive Varicose veins of both lower extremities Surgical History (Updated 10/05/19 @ 10:41 by Carie Mensah APN, MANN) No pertinent past surgical history Family History (Updated 12/19/20 @ 14:58 by aKssy Walker) Colon cancer Grandfather Paternal--dx age unknown Diabetes Mother Grandmother Paternal grandmother Heart disease Mother Father Hypertension Grandmother Maternal grandmother Father Stroke Mother Denies family history of Ovarian cancer Breast cancer Uterine cancer Thyroid disease Social History Smoking and tobacco status: never smoked Pertinent Exam Findings alert, oriented x 3, clear to auscultation bilaterally and regular rate & rhythm Recommendations Surgery/Procedure today Coding Level of Care Code Acute Blade Balancer for Uche Donaldson
--- NOTE | 2021-11-02 11:08 | ANES.PREANE2 ---
Pre-Anesthetic Assessment Height/Weight: Height 1.7 m Weight 104.326 kg Temp Pulse Resp BP Pulse Ox 97.6 F 72 18 149/72 94 11/02/21 10:20 11/02/21 10:20 11/02/21 10:20 11/02/21 10:20 11/02/21 10:20 Preop Diagnosis: Severe Operation Date: 11/02/21 11:00 Proposed Procedures p JACKIE/(Not Applicable) - Katarzyna Brody MD Familial anesthetic complications: None Was Beta [place] taken within 24 hours: Yes Was Clonidine taken within 24 hours: Yes Last intake: Intake Last Liquid Date 11/01/21 Last Liquid Time 20:30 Last Solid Date 11/01/21 Last Solid Time 20:30 Social No alcohol and No tobacco Exam alert, oriented x 3, clear to auscultation bilaterally and regular rate & rhythm Airway Submandibular: within normal limits Cervical ROM: within normal limits Mallampati: Class II Dentition: full Pulmonary Sleep Apnea CV/HEM Hypertension and Murmur () Metabolic Morbid Obesity Anesthetic Plan ASA status: 3 Anesthesia: MAC Medications/Allergies Home Medications Medication Instructions Recorded Confirmed Last Taken Type coenzyme Q10 400 mg capsule (Co 400 mg PO DAILY@0700 02/18/20 11/02/21 11/01/21 History Q-10) garlic 300 mg capsule 300 mg PO DAILY@0702/18/20 11/02/21 11/01/21 History omega 2-ppt-qum-fish oil 1,000 mg 1 cap PO DAILY@0702/18/20 11/02/21 11/01/21 History (120 mg-180 mg) capsule (Fish Oil) magnesium 200 mg tablet 1,200 mg PO BID@07,199907/16/20 11/02/21 11/01/21 History clonidine HCl 0.1 mg tablet 0.1 mg PO BID PRN 08/22/20 11/02/21 11/01/21 History zinc 50 mg tablet 50 mg PO DAILY 08/22/20 11/02/21 11/01/21 History ascorbate calcium (vitamin C) 500 1 g PO DAILY tab 06/18/21 11/02/21 11/01/21 History mg tablet cholecalciferol (vitamin D3) 75 10,000 unit PO DAILY@0700 tab 06/18/21 11/02/21 11/01/21 History mcg (3,000 unit) tablet diclofenac sodium 75 mg 75 mg PO BID 06/18/21 11/02/21 11/01/21 History tablet,delayed release turmeric (bulk) 95 % powder 1 ea MISCELLANEOUS DAILY 06/18/21 11/02/21 11/01/21 History (Curcumin) carvedilol 12.5 mg tablet 18.75 mg PO BID #270 tab 07/03/21 11/02/21 11/02/21 Rx hydralazine 50 mg tablet 100 mg PO TID tab 09/11/21 11/02/21 11/02/21 History valsartan 160 1 tab PO BID #180 tab 10/01/21 11/02/21 11/01/21 Rx mg-hydrochlorothiazide 12.5 mg tablet spironolactone 50 mg tablet 50 mg PO DAILY #90 tab 10/26/21 11/02/21 11/01/21 Rx fenofibrate nanocrystallized 145 145 mg PO DAILY 11/01/21 11/02/21 11/01/21 History mg tablet Allergies Allergy/AdvReac Type Severity Reaction Status Date / Time amlodipine [From [facility]] Allergy Unknown Unknown Verified 11/02/21 10:21 Sulfa (Sulfonamide Allergy Unknown Unknown Verified 11/02/21 10:21 Antibiotics) Current Medications Generic Name Dose Route Start Last Admin Trade Name Freq PRN Reason Stop Dose Admin Sodium Chloride 1,000 mls @ 30 mls/hr 11/02/21 10:30 11/02/21 10:33 Sodium Chloride 0.9% IV 11/03/21 10:29 30 mls/hr .Q24H BISHOP Administration PFSH Anesthesia Medical History (Updated 09/11/21 @ 22:41 by Katarzyna Brody MD) Aortic stenosis History of adenomatous polyp of colon History of COVID-19 (~07/2020) Hyperlipidemia, unspecified Malignant hypertension No pertinent past medical history neghx: dm,thyroid,dvt/pe PCP: Dr. Wright Peripheral neuropathy Sleep apnea, obstructive Varicose veins of both lower extremities Surgical History No pertinent past surgical history Family History Mother Diabetes Heart disease Stroke Grandmother Hypertension Maternal grandmother Diabetes Paternal grandmother Family/Other No problems noted. Grandfather Colon cancer Paternal--dx age unknown Father Heart disease Hypertension Denies family history of Ovarian cancer Breast cancer Uterine cancer Thyroid disease Social History Smoking and tobacco status: never smoked Data Anesthesia Cardiac Studies: Echocardiogram 09/04/21 Echocardiogram Ultrasound 02/08/20 Holter Monitor 09/03/19
--- NOTE | 2021-11-02 11:15 | USCV_ITS ---
Keira Infante Age: 60 Gender: F : 1960 Exam Date: 11/02/2021 11:35 Ordering Phys: Katarzyna Brody MD ([email or web address]) Technologist: Abbe Bell Exam Location: [facility] – [place] Indication: Aortic stenosis BP: / HR: Rhythm: Sinus Technical Quality: Good MEASUREMENTS (Male / Female) Normal Values Medications Patient given IV sedation by anesthesia service, for details please refer to the anesthesia report. Complications Intubation easy. Attempts x2. No blood on probe post procedure. Patient tolerated procedure well. Proc. Components The patient was brought to the JACKIE examination room in a fasting state after obtaining an informed consent. The JACKIE probe was passed into the posterior pharynx , mid-esophagus, distal esophagus, and gastric fundus. FINDINGS Left Ventricle Normal left ventricular size, systolic function and upper normal wall thickness, with no regional wall motion abnormalities. Left ventricular ejection fraction is estimated at 65%. Right Ventricle Normal right ventricular size and systolic function. RVSP could not be calculated due to incomplete tricuspid regurgitation velocity profile. Right Atrium Normal right atrial size. Left Atrium Normal left atrial size. LA Appendage Normal left atrial appendage. Normal flow velocities in the left atrial appendage. No thrombus visualized in the left atrial appendage. IA Septum Normal interatrial septum. No patent foramen ovale or atrial septal defect by color or agitated saline study. Mitral Valve Structurally normal mitral valve. No mitral valve stenosis. No mitral valve regurgitation. Aortic Valve Moderately thickened and calcified trileaflet aortic valve. Mild aortic valve stenosis, peak velocity 2.6 m/s, peak gradient 28 mmHg mean gradient 12 mmHg, GIN 1.9 cm squared. Aortic valve area by 2D planimetry of 1.7 cm squared. Trace aortic valve regurgitation. Tricuspid Valve Structurally normal tricuspid valve. No tricuspid valve stenosis. Trace tricuspid valve regurgitation. Pulmonic Valve Structurally normal pulmonic valve. No pulmonary valve stenosis. No pulmonary valve regurgitation. Pericardium No pericardial effusion. Aorta Normal size aortic root and proximal ascending aorta. No evidence of aortic dilation aneurysm or dissection. Grade III atheroma noted in mid descending aorta. CONCLUSIONS 1. Normal left ventricular size, systolic function and upper normal wall thickness, with no regional wall motion abnormalities. Left ventricular ejection fraction is estimated at 65%. 2. Normal right ventricular size and systolic function. 3. Moderately thickened and calcified trileaflet aortic valve. Mild aortic valve stenosis, peak velocity 2.6 m/s, peak gradient 28 mmHg mean gradient 12 mmHg, GIN 1.9 cm squared. Aortic valve area by 2D planimetry of 1.7 cm squared. Trace aortic valve regurgitation. 4. No prior similar studies to compare. Katarzyna Brody MD (Electronically Signed) Final Date: 03 November 2021 13:12 S
[2021-11-02 12:00] VITALS: BP 111/49; PULSE 82; RESP 16; TEMP 36.1; O2SAT 94
--- NOTE | 2021-11-02 12:06 | SUR.OPER ---
3ml ns with 1.5ml air pushed using 3way stopcock.
[2021-11-02 12:20] VITALS: BP 101/49; PULSE 70; RESP 18; O2SAT 93
--- NOTE | 2021-11-02 17:37 | ANE.PACU2 ---
Inpatient post-anesthesia follow up: Airway intact: Yes Vital signs: Temperature 97.0 F Pulse Rate 70 Respiratory Rate 18 Blood Pressure 101/49 Pulse Oximetry 93 Oxygen Delivery Me thod Room Air Oxygen Flow Rate Fraction of Inspir ed Oxygen Hydration adequate: Yes Nausea and vomiting: No Pain level: 1 Mental status: Baseline
== END 2021-11-02 12:59 | disposition home or self-care (01) ==
PROVIDERS: Internal Medicine Cardiovascular Disease; PCP Electrodiagnostic Medicine; Visit Provider Internal Medicine
PROC: (CPT 93312; principal; 2021-11-02 11:00)
DX: I35.0 Nonrheumatic aortic (valve) stenosis (principal); I10 Essential (primary) hypertension; E66.01 Morbid (severe) obesity due to excess calories; Z68.36 Body mass index [BMI] 36.0-36.9, adult; Z86.16 Personal history of COVID-19; E78.5 Hyperlipidemia, unspecified; G47.33 Obstructive sleep apnea (adult) (pediatric)
CPT/HCPCS: 93312; 93320; 93325; J2704; J7030

== ENCOUNTER → 2021-12-10 11:35 | Outpatient (BNVA) | payer MEDICAID, SELFPAY | PROVIDERS: PCP Electrodiagnostic Medicine; Visit Provider Internal Medicine Cardiovascular Disease | DX: I35.0 Nonrheumatic aortic (valve) stenosis (principal); I10 Essential (primary) hypertension | CPT/HCPCS: 99214 ==

== ENCOUNTER → 2021-12-21 15:52 | Outpatient (BNVA) | payer MEDICAID, SELFPAY | PROVIDERS: PCP Electrodiagnostic Medicine; Visit Provider Nurse Practitioner Women's Health | DX: Z01.419 Encounter for gynecological examination (general) (routine) without abnormal findings (principal); Z12.39 Encounter for other screening for malignant neoplasm of breast | CPT/HCPCS: 87624 ==

== ENCOUNTER 2022-09-02 10:32 | Outpatient (CLI) | payer MEDICAID, SELFPAY ==
--- NOTE | 2022-09-02 10:43 | MM_ITS ---
WS: [id number] VIEWS: MLO and CC views both breasts. 3D digital tomosynthesis is also included in this exam. Comparison made with prior exam of 12/21/2012, 04/14/2015, 09/03/2018,. Findings: There was no sign of mass, architectural distortion or suspicious calcification in either breast. Sc attered fibroglandular densities MM/[place] [id number] Impression: BI-RADS: 2-Benign FOLLOW-UP: 1 Year Follow-up This mammogram was also analyzed by the Computer Aided Detection System R2 Imag e [employer].
== END 2022-09-02 10:33 | disposition home or self-care (01) ==
PROVIDERS: PCP Electrodiagnostic Medicine; Visit Provider Physician Assistant
DX: Z12.31 Encounter for screening mammogram for malignant neoplasm of breast (principal)
CPT/HCPCS: 77063; 77067

== ENCOUNTER 2023-01-08 07:46 | Emergency (ER) | payer MEDICAID, SELFPAY ==
[2023-01-08] VITALS (7 sets, daily range): BP systolic 159–179; BP diastolic 61–73; PULSE 55–80; RESP 16–17; TEMP 36.7; O2SAT 93–96; BMI 35.2
--- NOTE | 2023-01-08 07:48 | XR_ITS ---
WS: [id number] Exam: XR chest 1V portable [id number] Date/Time of Exam: 01/08/2023 7:52 AM Reason For Exam: chest pain Comparison 08/01/2020. Findings: The lungs are clear and fully expanded. Costophrenic angles are sharp. No infiltrates. Bronchovascula r relief appears normal. Cardiac silhouette is unremarkable. Bony elements are intact. XR/XR chest 1V portable [id number] IMPRESSION: Unremarkable chest radiograph.
--- NOTE | 2023-01-08 07:50 | W.ED.CHESTPA ---
HPI - Chest Pain General: Chief Complaint: Chest Pain Stated Complaint: Kyle sent for chest/left arm pain Time Seen by Provider: 01/08/23 07:47 Source: patient Mode of arrival: ambulatory Limitations: no limitations History of Present Illness: Patient is a nice 62-year-old female presents to ED today sent by Dr. Wright for further evaluation of chest pains. Patient states over the past several weeks she has had intermittent episodes of crampy-like sensations to the left side of her chest. She states they are usually accompanied by left arm paresthesias. She states pain usually only will last for 2 to 3 minutes before subsiding on its own. She states she will have about 4-5 episodes of these daily. They do not seem to be brought on by exertion in any way and actually finds that symptoms often times come on while at rest. She states she worked in her garden for almost 2 hours yesterday without any issues. She is not having any shortness of breath or difficulty breathing. She states she has had left arm paresthesias previously stating she has some type of bony growth in her shoulder that they are wanting to do surgery on. She has no known cardiac history. She has aortic stenosis. She denies dizziness/lightheadedness. No racing heart rate or palpitations. MD complaint: chest pain Onset (ago): week(s) Timing of current episode: episodic Prior episodes: Yes Onset: during rest Pain location: left chest Pain radiation: left arm Severity: mild Quality: other (cramping) Relieving factors: nothing Exacerbating factors: nothing Associated symptoms: Reports no associated symptoms; Deny abdominal pain, dyspnea, fever(s), palpitations or syncope Treatment prior to arrival: none Risk Factors: Coronary artery disease risk factors: hypertension Thoracic aortic dissection risk factors: none Related Data: On Oral Contraceptives: No Review of Systems Const: Denies: fever(s), chills, body aches, fatigue or malaise Card: Reports: chest pain; Denies: palpitations, irregular heart rhythm, edema, swelling of feet/ankles, lightheadedness, syncope, pre-syncope, dyspnea on exertion, orthopnea, leg pain with exertion or acrocyanosis Resp: Denies: dyspnea, productive cough, wheezing, pain on inspiration, hemoptysis or chest congestion GI: Denies: abdominal pain Musc: Reports: neck pain (chronic); Denies: back pain, extremity pain, extremity swelling, joint pain, joint swelling, joint redness, joint warmth or limited range of motion Skin/Breast: Denies: rash Neuro: Reports: sensory changes (left arm paresthesias); Denies: headache(s), weakness in extremities or difficulty walking [facility] ED PFSH: Medical History Aortic stenosis Managed by Dr. López and then Dr. Brody History of adenomatous polyp of colon History of COVID-19 (~07/2020) Hyperlipidemia, unspecified Malignant hypertension No pertinent past medical history neghx: dm,thyroid,dvt/pe PCP: Dr. Wright Obesity (BMI 35.0-39.9 without comorbidity) Peripheral neuropathy Psoriatic arthritis (~01/2021) post covid vaccine (Moderna) Rheumatology management with PCP Rheumatoid arthritis Managed by PCP Sleep apnea, obstructive Varicose veins of both lower extremities Surgical History No pertinent past surgical history Family History Mother Diabetes Heart disease Stroke Grandmother Hypertension Maternal grandmother Diabetes Paternal grandmother Family/Other No problems noted. Grandfather No problems noted. Father Heart disease Hypertension Stroke Prostate CA dx age 70's Brother Diabetes Stroke Thyroid disease Social History Smoking and tobacco status: never smoked Substance/Drug Use: never Physical Exam Const: COMMON NORMALS: no acute distress, patient oriented x3, no limitations, alert and well nourished GENERAL APPEARANCE: cooperative NUTRITIONAL APPEARANCE: obese ORIENTATION/CONSCIOUSNESS: Yes awake, Yes oriented to person, Yes oriented to place and Yes oriented to time HENMT: COMMON NORMALS: normocephalic and atraumatic HEAD & SCALP: normal to inspection, normocephalic and atraumatic Neck/C-Spine: COMMON NORMALS: full ROM, no lymphadenopathy, supple, no meningeal signs and no JVD Chest: COMMONS NORMALS: normal inspection of the chest and normal palpation of entire chest wall Resp: COMMON NORMALS: normal respiratory effort and clear to auscultation bilaterally AUSCULTATION: clear to auscultation bilaterally Cardio: COMMON NORMALS: no JVD, regular rate and regular rhythm RATE: regular rate RHYTHM: regular rhythm GI: COMMON NORMALS: Normal to inspection, nondistended, normoactive bowel sounds present, Soft to palpation, non-tender, No hepatosplenomegaly present and no masses PALPATION: Yes Soft to palpation and Yes No hepatosplenomegaly present Extremity: COMMON NORMALS: normal to inspection, full ROM, capillary refill normal, no joint enlargement, no clubbing, cyanosis or edema, no calf tenderness and no pedal edema GENERAL: Yes normal exam except as noted Neuro: COMMON NORMALS: patient oriented x3, CN's II-XII intact bilaterally, moves all extremities, no focal motor deficits, no sensory deficits noted and gait normal SENSORIUM/ORIENTATION: Yes alert, Yes oriented to person, Yes oriented to place and Yes oriented to time MENINGEAL SIGNS: Yes no meningeal signs Skin: COMMON NORMALS: no rashes or lesions noted GENERAL SKIN EXAM: no rashes or lesions noted Course Vital Signs: Vital signs: Vital Signs Temperature 98.1 F 01/08/23 07:51 Pulse Rate 70 01/08/23 12:33 Respiratory Rate 17 01/08/23 12:33 Blood Pressure 161/64 01/08/23 12:33 Pulse Oximetry 96 01/08/23 12:33 Oxygen Delivery Me thod Room Air 01/08/23 07:51 MDM - Chest Pain Medical Decision Making Patient is a nice 62-year-old female who presents to ED today with a complaint of episodic cramping-like sensations to the left side of her chest. She states pain is only present for approximately 2 to 3 minutes before subsiding on its own. It is not related to exertion at all. States she worked in her garden for two hours yesterday without issues. She thinks maybe it could be related to known shoulder pathology. She does not complain of shortness of breath or difficulty breathing. Blood work here overall is nonactionable. Her baseline troponin is scantly elevated at 14. It was elevated at 17 back in 2019. 2-hour troponin is 11.6. EKG showing some T wave inversions in lead I and aVL. No reciprocal changes noted. Looks like she had some T wave inversions in aVL back in 2019. EKGs and patient case reviewed with Dr. Mckeon. 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 Brody so we will try to get her an appointment next week for reevaluation. Patient was given an inch of nitropaste here but she did not feel like there was any improvement. Strict return ED precautions given. Patient does have echocardiograms on file from 10/30 showing normal EF of 60%. Lab Data 01/08/23 08:10 01/08/23 08:10 Radiology Impressions Chest X-Ray 01/08/23 07:48 IMPRESSION: Unremarkable chest radiograph. Laboratory Results WBC 6.5 10^3/uL (4.0-10.0) 01/08/23 08:10 RBC 4.31 10^6/uL (4.1-5.3) 01/08/23 08:10 Hgb 12.1 g/dL (11.5-15.3) 01/08/23 08:10 Hct 37.5 % (37.0-47.0) 01/08/23 08:10 MCV 87.0 fl (81-99) 01/08/23 08:10 MCH 28.1 pg (28.0-34.0) 01/08/23 08:10 MCHC 32.3 g/dL (30.0-36.0) 01/08/23 08:10 RDW 13.0 % (12.1-15.1) 01/08/23 08:10 Plt Count 294 10^3/cmm (130-400) 01/08/23 08:10 MPV 9.2 fL (7.4-10.4) 01/08/23 08:10 Neut % (Auto) 56.5 % 01/08/23 08:10 Lymph % (Auto) 30.6 % 01/08/23 08:10 [place] % (Auto) 8.3 % 01/08/23 08:10 Eos % (Auto) 3.2 % 01/08/23 08:10 Baso % (Auto) 0.9 % 01/08/23 08:10 Neut # (Auto) 3.65 10^3/uL (1.8-7.7) 01/08/23 08:10 Lymph # (Auto) 2.0 10^3/uL (0.8-4.8) 01/08/23 08:10 [place] # (Auto) 0.5 10^3/uL (0.2-0.9) 01/08/23 08:10 Eos # (Auto) 0.2 10^3/uL (0.0-0.8) 01/08/23 08:10 Baso # (Auto) 0.1 10^3/uL (0.0-0.1) 01/08/23 08:10 Nucleated RBC % (auto) 0 % 01/08/23 08:10 Nucleated RBCs # 0.0 /100WBC 01/08/23 08:10 Sodium 138 mmol/L (136-145) 01/08/23 08:10 Potassium 3.7 mmol/L (3.5-5.1) 01/08/23 08:10 Chloride 101 mmol/L (98-107) 01/08/23 08:10 Carbon Dioxide 25 mmol/L (22-29) 01/08/23 08:10 Anion Gap 15.7 (5-19) 01/08/23 08:10 BUN 13 mg/dL (8-23) 01/08/23 08:10 Creatinine 0.7 mg/dL (0.5-0.9) 01/08/23 08:10 GFR Calculation 84.5 mL/min (90-130) L 01/08/23 08:10 Glucose 118 mg/dL (65-115) H 01/08/23 08:10 Calculated Osmolality 287 mOsm/kg (285-295) 01/08/23 08:10 Calcium 9.2 mg/dL (8.5-10.5) 01/08/23 08:10 Total Bilirubin 0.5 mg/dL (0.15-1.2) 01/08/23 08:10 AST 24 U/L (0-32) 01/08/23 08:10 ALT 26 U/L (0-33) 01/08/23 08:10 Alkaline Phosphatase 64 U/L (35-105) 01/08/23 08:10 Troponin T Baseline 14 ng/L (0-10) H 01/08/23 08:10 Troponin T 120 Minute 11.61 ng/L (0-10) H 01/08/23 10:05 Delta Troponin T -2.39 ABS# (0-10) L 01/08/23 10:05 Total Protein 6.4 g/dL (6.6-8.7) L 01/08/23 08:10 Albumin 4.5 g/dL (3.5-5.2) 01/08/23 08:10 Globulin 1.9 g/dL (1.3-4.6) 01/08/23 08:10 Discharge Plan Discharge Patient Disposition: Home Clinical Impression: Chest pain Qualifiers: Chest pain type: unspecified Qualified Code(s): R07.9 - Chest pain, unspecified Condition: Stable Prescriptions: No Action garlic 300 mg capsule 300 mg PO DAILY@0700 cholecalciferol (vitamin D3) 75 mcg (3,000 unit) tablet 10,000 unit PO DAILY@0700 clonidine HCl 0.1 mg tablet 0.1 mg PO BID PRN (Reason: Blood Pressure) ascorbate calcium (vitamin C) 500 mg tablet 1 g PO DAILY Curcumin 95 % powder 1 ea miscellaneous DAILY diclofenac sodium 75 mg tablet,delayed release (DR/EC) 75 mg PO BID PRN (Reason: Pain) hydralazine 50 mg tablet 100 mg PO TID spironolactone 50 mg tablet 50 mg PO DAILY PRN (Reason: unknown) mecobalamin (vitamin B12) 5,000 mcg tablet,disintegrating 5,000 mcg PO DAILY valsartan-hydrochlorothiazide 160-12.5 mg tablet 1 tab PO BID Qty: 180 3RF magnesium 200 mg tablet 1,200 mg PO BID@0700,2000 carvedilol 25 mg tablet 25 mg PO BID fenofibrate 120 mg tablet 120 mg PO QPM cyclobenzaprine 10 mg tablet 10 mg PO BEDTIME ezetimibe 10 mg tablet 10 mg PO DAILY Discharge Orders: Discharge ED (Routine); Ordered 01/08/23 Ordered By: Unique Sahu Referrals: Titus Wright DO [Primary Care Provider] - Patient Instructions: Chest Pain (DC) Activity Restrictions/Additional Instructions: As we discussed I will have case management get you an appointment to see your mixing tank operator this week or next for reevaluation of your chest pain. As we discussed your troponin/cardiac enzymes were trending downward here which is reassuring. You need to return to the emergency department for worsening chest pains, more frequent episodes especially with exertion, headedness/dizziness, severe shortness of breath or difficulty breathing, or any other concerns you may have. I hope you begin to feel better soon. Coding Level of Care Code ED Ammunition And Explosives Handler for Uche Donaldson
--- NOTE | 2023-01-08 08:03 | ECG_ITS ---
[facility] Test Date: 2023-01-08 Pat Name: Keira Infante Department: Room: Gender: Female Wall Washer: : 1960 Requested By: Unique Sahu Order Number: [id number] Sho MD: Katarzyna Brody M.D. Measurements Intervals [place] Rate: 73 P: 63 NH: 236 QRS: 65 QRSD: 89 T: 128 QT: 389 QTc: 430 Interpretive Statements SINUS RHYTHM WITH FIRST DEGREE AV BLOCK POSSIBLE LEFT ATRIAL ENLARGEMENT [-0.1mV P-WAVE IN V1/V2] ANTEROSEPTAL MYOCARDIAL INFARCTION , OF INDETERMINATE AGE [40+ ms Q WAVE IN V1-V4] Compared to ECG 07/16/2020 12:59:07 First degree AV block now present Sinus arrhythmia no longer present Myocardial infarct finding still present Electronically Signed On 01-08-2023 8:11:53 CDT by Katarzyna Brody M.D. [id number]
[2023-01-08 08:22] LABS: Basophils # 0.1 10^3/uL (0.0-0.1); Basophils % 0.9 %; Eosinophils # 0.2 10^3/uL (0.0-0.8); Eosinophils % 3.2 %; Hematocrit 37.5 % (37.0-47.0); Hemoglobin 12.1 g/dL (11.5-15.3); Lymphocytes % 30.6 %; Mean Corpuscular HGB Conc 32.3 g/dL (30.0-36.0); Mean Corpuscular Hemoglobin 28.1 pg (28.0-34.0); Mean Platelet Volume 9.2 fL (7.4-10.4); Monocytes # 0.5 10^3/uL (0.2-0.9); Monocytes % 8.3 %; Neutrophils # 3.65 10^3/uL (1.8-7.7); Neutrophils % 56.5 %; Nucleated Red Blood Cells % 0 %; Platelet Count 294 10^3/cmm (130-400); Red Blood Count 4.31 10^6/uL (4.1-5.3); White Blood Count 6.5 10^3/uL (4.0-10.0)
[2023-01-08 08:42] LABS: Troponin(5th) Baseline 14 ng/L (0-10)
[2023-01-08 08:46] LABS: Alanine Aminotransferase 26 U/L (0-33); Albumin Level 4.5 g/dL (3.5-5.2); Alkaline Phosphatase 64 U/L (35-105); Anion Gap 15.7 (5-19); Aspartate Amino Transferase 24 U/L (0-32); Blood Urea Nitrogen 13 mg/dL (8-23); Calcium 9.2 mg/dL (8.5-10.5); Carbon Dioxide 25 mmol/L (22-29); Chloride 101 mmol/L (98-107); Globulin 1.9 g/dL (1.3-4.6); Glomerular Filtration Rate 84.5 mL/min (90-130); Glucose 118 mg/dL (65-115); Osmolality Calculated 287 mOsm/kg (285-295); Potassium 3.7 mmol/L (3.5-5.1); Sodium 138 mmol/L (136-145); Total Bilirubin 0.5 mg/dL (0.15-1.2); Total Protein 6.4 g/dL (6.6-8.7)
--- NOTE | 2023-01-08 10:07 | ECG_ITS ---
[facility] Test Date: 2023-01-08 Pat Name: Keira Infante Department: Room: Gender: Female Voip Technician: : 1960 Requested By: Unique Sahu Order Number: [id number] Sho MD: Katarzyna Brody M.D. Measurements Intervals [place] Rate: 69 P: 61 [place]: 236 QRS: 50 QRSD: 93 T: 112 QT: 417 QTc: 448 Interpretive Statements SINUS RHYTHM WITH FIRST DEGREE AV BLOCK POSSIBLE LEFT ATRIAL ENLARGEMENT [-0.1mV P-WAVE IN V1/V2] POSSIBLE ANTERIOR MYOCARDIAL INFARCTION , OF INDETERMINATE AGE [30 ms Q WAVE IN V3/V4, OR R < 0.2 mV IN V4] Compared to ECG 01/08/2023 08:03:04 No significant changes Electronically Signed On 01-08-2023 10:28:41 CDT by Katarzyna Brody M.D. [id number]
[2023-01-08 10:45] LABS: Troponin 5 2HR 11.61 ng/L (0-10)
[2023-01-08 10:53] LABS: Troponin 5 2HR Delta -2.39 ABS# (0-10)
[2023-01-08] MEDS: nitroglycerin 1 gm/inch oint Pkt 1 INCH TOPICAL (11:24)
--- NOTE | 2023-01-09 08:28 | DCPLANNER ---
Addendum entered by Charisma Silvestre 01/14/23 11:33: Patient had a follow up appointment scheduled for 01.13.23 at [facility] - patient did attend appointment. Original Note: retail manager in training had message to schedule a follow up appointment for patient with cardiology. retail manager in training sent patients information to the front office staff at [facility]. Patients information will be printed and reviewed. Clinic will call patient with appointment information.
== END 2023-01-08 12:35 | disposition home or self-care (01) ==
PROVIDERS: Emergency Provider Physician Assistant; PCP Electrodiagnostic Medicine
DX: R07.9 Chest pain, unspecified (principal); E78.5 Hyperlipidemia, unspecified; I10 Essential (primary) hypertension
CPT/HCPCS: 71045; 80053; 84484; 85025; 93005; 99285

== ENCOUNTER 2023-01-31 14:56 | Outpatient (CLI) | payer MEDICAID, SELFPAY ==
--- NOTE | 2023-01-31 15:00 | XR_ITS ---
WS: [id number] DEXA (DUAL ENERGY X-RAY ABSORPTIOMETRY) Bone mineral density was performed using a Avatar Reality machine. HISTORY: Z78.0 - Asymptomatic menopausal state COMPARISON: 12/29/2020 Lumbar spine BMD (L1-L4): 1.213 g/cm2 T score: 0.3 Z score: 0.6 Total hip BMD: Left: 1.106 g/cm2. T score: 0.8 Z score: 1.0 Right: 1.129 g/cm2. T score: 1.0 Z score: 1.2 10 year probability of a major osteoporotic fracture is 8.0%. Compared to the prior study from 12/29/2020. Lumbar spine bone mineral density has decrease by 0.2%. Bilateral hips bone mineral density has increased by 1.2%. XR/XR DEXA axial skeleton* [id number] IMPRESSION: NORMAL BONE MINERAL DENSITY based upon the WHO classification for females. No significant change in the bone mineral density since the prior study.
== END 2023-01-31 14:57 | disposition home or self-care (01) ==
PROVIDERS: PCP Electrodiagnostic Medicine; Visit Provider Nurse Practitioner Women's Health
DX: Z78.0 Asymptomatic menopausal state (principal)
CPT/HCPCS: 77080

== ENCOUNTER 2023-02-07 08:56 | Outpatient (CLI) | payer MEDICAID, SELFPAY ==
--- NOTE | 2023-02-07 09:30 | USCV_ITS ---
Keira Infante Age: 62 Gender: F : 1960 Exam Date: 02/07/2023 09:24 Ordering Phys: Katarzyna Brody MD ([email or web address]) Technologist: Exam Location: [facility] [place] Indication: Chest pain BP: 140 / 70 HR: 70 Rhythm: Sinus Technical Quality: Adequate MEASUREMENTS (Male / Female) Normal Values 2D ECHO LV Diastolic Diameter PLAX 3.7 cm 4.2 - 5.9 / 3.9 - 5.3 cm LV Systolic Diameter PLAX 3.1 cm IVS Diastolic Thickness 1.1 cm 0.6 - 1.0 / 0.6 - 0.9 cm IVS Systolic Thickness 1.7 cm LVPW Diastolic Thickness 1.0 cm 0.6 - 1.0 / 0.6 - 0.9 cm LVPW Systolic Thickness 1.6 cm LVOT Diameter 2.0 cm LV Ejection Fraction 2D Teich 21.2 % LV Ejection Fraction MOD 2C 57.6 % LV Ejection Fraction 2C AL 57.2 % LA Diameter 3.7 cm IVC Diameter 1.3 cm M-MODE LV Diastolic Diameter MM 4.8 cm 4.2 - 5.9 / 3.9 - 5.3 cm LV Systolic Diameter MM 2.7 cm LV Ejection Fraction MM Teich 75.4 % IVS Diastolic Thickness MM 1.3 cm 0.6 - 1.0 / 0.6 - 0.9 cm IVS Systolic Thickness MM 2.1 cm LVPW Diastolic Thickness MM 1.6 cm 0.6 - 1.0 / 0.6 - 0.9 cm LVPW Systolic Thickness MM 2.0 cm RV Diastolic Diameter MM 1.4 cm Aortic Annulus Diameter 3.6 cm LA Ao Ratio MM 1.0 MV E Point Septal Separation 1.3 cm DOPPLER AV Peak Velocity 303.8 cm/s LVOT Peak Velocity 95.0 cm/s AV Area Cont Eq vti 1.0 cm squared AV Area Cont Eq pk 1.0 cm squared MV Area PHT 3.5 cm squared Mitral E to A Ratio 0.9 MV E' Velocity 55.5 cm/s Mitral E to MV E' Ratio 11.3 Mitral E to LV E' Lateral Ratio 12.5 Mitral E to LV E' Septal Ratio 10.4 TR Peak Velocity 199.3 cm/s TR Peak Gradient 15.9 mmHg TV Peak E Velocity 109.0 cm/s Right Atrial Pressure 3.0 mmHg Pulmonary Artery Systolic Pressu 18.9 mmHg RV Acceleration Time 0.2 s FINDINGS Left Ventricle Normal left ventricular size, systolic function and increased wall thickness, with no regional wall motion abnormalities. Left ventricular ejection fraction is estimated at 65%. Normal diastolic function. Right Ventricle Normal right ventricular size and systolic function. Right ventricular systolic pressure 18.9 mmHg. Right Atrium Normal right atrial size. Left Atrium Mildly increased left atrial size. Mitral Valve Mild mitral annular calcification. No mitral valve stenosis. No mitral valve regurgitation. Aortic Valve Thickened and calcified aortic valve. Moderate aortic valve stenosis, peak velocity of 3.1 m/s, peak gradient 40 mm Hg, mean gradient 19 mmHg, GIN 1 cm squared (LVOT=20 mm). Mild aortic valve regurgitation. Tricuspid Valve Structurally normal tricuspid valve. No tricuspid valve stenosis. Trace tricuspid valve regurgitation. Pulmonic Valve Structurally normal pulmonic valve. No pulmonary valve stenosis. Trace pulmonary valve regurgitation. Pericardium No pericardial effusion. Aorta Normal size aortic root and proximal ascending aorta. IVC Normal IVC dimension with >50% respiratory change of the inferior vena cava. CONCLUSIONS 1. Normal left ventricular size, systolic function and increased wall thickness, with no regional wall motion abnormalities. Left ventricular ejection fraction is estimated at 65%. Normal diastolic function. 2. Moderate aortic valve stenosis, peak velocity of 3.1 m/s, peak gradient 40 mm Hg, mean gradient 19 mmHg, GIN 1 cm squared. Mild aortic valve regurgitation. Katarzyna Brody MD (Electronically Signed) Final Date: 17 February 2023 10:48 S
== END 2023-02-07 08:57 | disposition home or self-care (01) ==
PROVIDERS: PCP Electrodiagnostic Medicine; Visit Provider Internal Medicine Cardiovascular Disease
DX: I35.0 Nonrheumatic aortic (valve) stenosis (principal); R07.9 Chest pain, unspecified; I10 Essential (primary) hypertension
CPT/HCPCS: 93306

== ENCOUNTER 2023-07-29 07:48 | Outpatient (CLI) | payer MEDICAID, SELFPAY ==
--- NOTE | 2023-07-29 07:55 | MR_ITS ---
WS: [id number] MRI CERVICAL SPINE NONCONTRAST HISTORY: L SHOULDER PAIN COMPARISON: 06/29/2020 Technique: Multiplanar, multisequence noncontrast imaging of the cervical spine. Straightening of the normal cervical lordosis. Slight progression of straightening since 2019. Disc b ulging and small osteophytes in the mid cervical spine with mild progression. Signal within the cervical cord is normal. Visualized posterior fossa is unremarkable. Craniocervical junction, C1 and C2 relationship, odontoid process and soft tissues are normal. C2-C3: Very minimal LEFT foraminal stenosis as seen on the prior examination. No progression C3-C4: Mild osteophytic ridging and disc disease. Mild bilateral foraminal stenosis, LEFT greater rich n RIGHT. New synovitis surrounding the LEFT facet joint. There is increased fluid surrounding the fac et joint which was not present on the prior study. There is also marrow edema in the articular facets of C3 and C4 on the LEFT. C4-C5: Central disc protrusion and disc bulging. Mild central and bilateral foraminal stenosis. Synov itis LEFT facet joint. C5-C6: Diffuse osteophytic ridging and annular disc bulging. Disc osteophyte complexes bilaterally ex tending into the foramina, greatest on the RIGHT. Moderate central with moderate to severe bilateral foraminal stenosis, RIGHT greater than LEFT. C6-C7: Diffuse osteophytic ridging and annular disc bulging. Bilateral foraminal disc protrusions. Mo derate central with severe bilateral foraminal stenosis. Similar to the prior study. C7-T1: Mild bilateral foraminal narrowing. Paraspinal soft tissue are normal. IMPRESSION: 1. Marked straightening of the normal cervical lordosis. No myelomalacia identified. 2. New marrow edema in the LEFT articular facets of C3 and C4 with associated synovitis of the joint space. 3. Multilevel central and foraminal stenoses as above. Stenosis due to combination of disc, osteophyt e and facet arthritis. 4. C5-6: Moderate central with moderate to severe bilateral foraminal stenosis, RIGHT greater than LE FT. 5. C6-7: Moderate central with severe bilateral foraminal stenosis. 6. C3-4 and C7-T1: Mild foraminal stenosis. 7. C2-3: Mild LEFT foraminal stenosis.
== END 2023-07-29 07:49 | disposition home or self-care (01) ==
LOC: RAD 07:48
PROVIDERS: PCP Electrodiagnostic Medicine; Visit Provider Electrodiagnostic Medicine
DX: M25.512 Pain in left shoulder (principal); M48.02 Spinal stenosis, cervical region; G95.19 Other vascular myelopathies
CPT/HCPCS: 72141

== ENCOUNTER → 2024-04-15 14:27 | Outpatient (BNVA) | payer MEDICAID, SELFPAY | PROVIDERS: PCP Electrodiagnostic Medicine; Visit Provider Internal Medicine Cardiovascular Disease | DX: I10 Essential (primary) hypertension (principal); I35.0 Nonrheumatic aortic (valve) stenosis; E78.1 Pure hyperglyceridemia; E66.9 Obesity, unspecified | CPT/HCPCS: 36415; 80053; 80061; 86141 ==

== ENCOUNTER 2024-08-31 09:28 | Outpatient (CLI) | payer MEDICAID, SELFPAY ==
--- NOTE | 2024-08-31 09:30 | MM_ITS ---
WS: [id number] BILATERAL 3D TOMOSYNTHESIS DIGITAL SCREENING MAMMOGRAPHY WITH CAD CLINICAL INFORMATION: SCREENING HISTORY: Screening mammogram. No current complaints. COMPARISON: 2022 TECHNIQUE: Bilateral CC and MLO views. FINDINGS: Scattered fibroglandular densities bilaterally. No suspicious focal mass, asymmetry, calcifications, or architectural distortion. No evidence of malignancy. Vascular calcifications. A few incidental pun ctate calcifications. MM/MM scr tomosynthesis [id number] IMPRESSION: DENSITY: There are scattered areas of fibroglandular density. BI-RADS: 2 - Benign. FOLLOW UP: 1 Year Follow-up Recommend return to annual screening mammography.
== END 2024-08-31 09:29 | disposition home or self-care (01) ==
LOC: RAD 09:29
PROVIDERS: PCP Electrodiagnostic Medicine; Visit Provider Nurse Practitioner Women's Health
DX: Z12.31 Encounter for screening mammogram for malignant neoplasm of breast (principal); R92.323 Mammographic fibroglandular density, bilateral breasts; R92.1 Mammographic calcification found on diagnostic imaging of breast
CPT/HCPCS: 77063; 77067

== ENCOUNTER 2024-12-02 09:02 | Outpatient (CLI) | payer MEDICARE, MEDICAID, SELFPAY ==
--- NOTE | 2024-12-02 09:15 | USCV_ITS ---
Keira Infante Age: 64 Gender: F : 1960 Exam Date: 12/02/2024 09:14 Ordering Phys: Angel Mark MD ([email or web address]) Technologist: Exam Location: [facility] [place] Indication: as BP: 143 / 80 HR: 60 Rhythm: Sinus Technical Quality: Adequate MEASUREMENTS (Male / Female) Normal Values 2D ECHO LV Diastolic Diameter PLAX 4.4 cm 4.2 - 5.9 / 3.9 - 5.3 cm IVS Diastolic Thickness 1.3 cm 0.6 - 1.0 / 0.6 - 0.9 cm IVS Systolic Thickness 1.9 cm LVPW Diastolic Thickness 1.6 cm 0.6 - 1.0 / 0.6 - 0.9 cm LVPW Systolic Thickness 1.8 cm LVOT Diameter 2.0 cm LV Ejection Fraction 2D Teich 61.9 % LV Ejection Fraction MOD 4C 64.7 % LV Ejection Fraction MOD 2C 78.9 % LV Ejection Fraction 2C AL 80.2 % LA Diameter 3.5 cm RA Systolic Volume 4C AL 69.2 ml RA Systolic Volume 4C MOD 65.7 ml Aorta at Sinotubular Diameter 2.9 cm IVC Diameter 1.8 cm M-MODE LA Ao Ratio MM 1.4 AV Cusp Separation MM 1.7 cm DOPPLER AV Peak Velocity 296.3 cm/s LVOT Peak Velocity 109.0 cm/s AV Area Cont Eq vti 1.0 cm squared AV Area Cont Eq pk 1.2 cm squared MV Peak Velocity 117.0 cm/s MV Area PHT 2.4 cm squared Mitral E to A Ratio 1.0 TR Peak Velocity 127.0 cm/s TR Peak Gradient 6.5 mmHg TV Peak E Velocity 82.0 cm/s PV Peak Velocity 130.0 cm/s FINDINGS Left Ventricle Normal left ventricular size, systolic function and wall thickness, with no regional wall motion abnormalities. Left ventricular ejection fraction is estimated at 60 %. Grade I/IV diastolic dysfunction (abnormal relaxation filling pattern), normal to mildly elevated filling pressures. Right Ventricle The right ventricle is normal in size and function. Right Atrium The right atrium is normal in size. Left Atrium The left atrium is normal in size. Mitral Valve Structurally normal mitral valve without significant stenosis or prolapse. There is no mitral regurgitation. Aortic Valve Severe aortic valve calcification. Moderate aortic valve stenosis, mean gradient 16.8 mmHg, GIN 1 cm squared.trace aortic valve regurgitation. Tricuspid Valve Structurally normal tricuspid valve without significant stenosis or regurgitation. Pulmonary artery systolic pressure is normal. Pulmonic Valve Structurally normal pulmonic valve without significant stenosis. There is no pulmonic regurgitation. Pericardium Normal pericardium without effusion. Aorta Normal ascending aorta dimension. IVC The inferior vena cava appears normal. CONCLUSIONS Normal left ventricular size, systolic function and wall thickness, with no regional wall motion abnormalities. Left ventricular ejection fraction is estimated at 60 %. Grade I/IV diastolic dysfunction (abnormal relaxation filling pattern), normal to mildly elevated filling pressures. Severe aortic valve calcification. Moderate aortic valve stenosis, mean gradient 16.8 mmHg, GIN 1 cm squared.trace aortic valve regurgitation. There is no pericardial effusion. Right atrial pressure is around 5 mm of mercury. Angel Mark MD (Electronically Signed) Final Date: 26 Dec 2024 16:44 S
== END 2024-12-02 09:03 | disposition home or self-care (01) ==
LOC: RAD 09:03
PROVIDERS: PCP Electrodiagnostic Medicine; Visit Provider Internal Medicine Cardiovascular Disease
DX: I35.0 Nonrheumatic aortic (valve) stenosis (principal); R93.1 Abnormal findings on diagnostic imaging of heart and coronary circulation; I35.8 Other nonrheumatic aortic valve disorders
CPT/HCPCS: 93306

== ENCOUNTER → 2025-04-21 13:11 | Outpatient (BNVA) | payer MEDICAID, SELFPAY | PROVIDERS: PCP Electrodiagnostic Medicine; Visit Provider Internal Medicine Cardiovascular Disease | DX: I35.0 Nonrheumatic aortic (valve) stenosis (principal); I10 Essential (primary) hypertension; R07.9 Chest pain, unspecified | CPT/HCPCS: 99214 ==